=== PATIENT | female | born 2000 | race Two or more races ===

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

== ENCOUNTER 2019-04-08 19:40 | Emergency (ER) | payer SELFPAY ==
[2019-04-08 19:46] VITALS: BP 103/78; TEMP 98.5; BMI 25.7
[2019-04-08] MEDS ORDERED: LORazepam 0.5 MG TABLET PO ONE (19:54)
[2019-04-08] MEDS ORDERED: LORazepam 0.5 MG TABLET ONE (19:58)
[2019-04-08 19:59] VITALS: PULSE 86
--- NOTE | 2019-04-08 19:59 | PDOC ---
History of Present Illness - General Chief Complaint: Psychiatric Stated Complaint: ANXIETY Time Seen by Provider: 04/08/19 19:47 History Source: Patient - History of Present Illness Timing/Duration: other Past History - Past Medical History Allergies/Adverse Reactions: Allergies Allergy/AdvReac Type Severity Reaction Status Date / Time No Known Allergies Allergy Verified 09/17/18 07:50 Home Medications: Ambulatory Orders NK [No Known Home Medication] 09/17/18 COPD: No - Reproductive History (#): 1 Para: 0 - Immunization History Immunization Up to Date: Yes - Psycho Social/Smoking Cessation Hx Smoking History: Never smoked Have you smoked in the past 12 months: No Hx Alcohol Use: No Drug/Substance Use Hx: No Review of Systems - Review of Systems Respiratory: Yes: Shortness of Breath Cardiac (ROS): No: Chest Pain, Lightheadedness, Palpitations, Syncope Psychiatric: Yes: Anxiety. No: Depression, Stressors *Physical Exam - Vital Signs Last Vital Signs Temp Pulse Resp BP Pulse Ox 98.5 F 112 H 19 103/78 100 04/08/19 19:42 04/08/19 19:42 04/08/19 19:42 04/08/19 19:42 04/08/19 19:42 - Physical Exam General Appearance: Yes: Appropriately Dressed. No: Apparent Distress HEENT: positive: Normal Voice Neck: positive: Supple Respiratory/Chest: positive: Lungs Clear, Normal Breath Sounds. negative: Respiratory Distress Cardiovascular: positive: Regular Rate, S1, S2 Integumentary: positive: Dry, Warm Neurologic: positive: Fully Oriented, Alert, Normal Mood/Affect Medical Decision Making - Medical Decision Making 04/08/19 19:55 18-year-old female, denies any past medical history, here with feelings of "anxiety" x2 days. Patient reports that she has been feeling "jittery" and on edge w/ ? periods of SOB but not certain as to why as she has no major stressors in her life and no recent life changes. No history of prior symptoms and no history of psych disorder. States her aunt does have anxiety. Patient has no hallucinations and no SI or HI. Denies any illicit drug use. Patient well-appearing and stable here (HR 112 at triage, normalized to 86 on rpt) and in no apparent distress. Small dose Ativan given. Patient told to follow-up with her PMD for further evaluation and possible psych referral 04/08/19 19:58 Discharge - Discharge Information Problems reviewed: Yes Clinical Impression/Diagnosis: Anxiety Condition: Good Disposition: HOME - Follow up/Referral - Patient Discharge Instructions Patient Printed Discharge Instructions: DI for Anxiety -- Adult Additional Instructions: Please follow-up with your primary care physician if your symptoms persist If symptoms worsen and you feel suicidal, please return to the ER - Post Discharge Activity
== END 2019-04-08 20:25 | disposition home or self-care (01) ==
LOC: JERFT 19:40
DX: F41.9 Anxiety disorder, unspecified (principal); Z11.3 Encounter for screening for infections with a predominantly sexual mode of transmission
CPT/HCPCS: 36415; 87491; 87591; 99282-25

== ENCOUNTER 2019-08-09 09:12 | Emergency (ER) | payer OTHER ==
[2019-08-09 09:23] VITALS: BP 105/60; PULSE 83; TEMP 97.6; BMI 23.1
[2019-08-09 09:58] LABS: URINE APPEARANCE CLEAR; URINE BILIRUBIN NEGATIVE (NEGATIVE); URINE COLOR YELLOW; URINE GLUCOSE (UA) NEGATIVE (NEGATIVE); URINE KETONE NEGATIVE (NEGATIVE); URINE LEUK ESTERASE NEGATIVE (NEGATIVE); URINE NITRITE NEGATIVE (NEGATIVE); URINE PROTEIN NEGATIVE (NEGATIVE); URINE UROBILINOGEN 0.2 mg/dL (0.2-1.0)
[2019-08-09 10:10] LABS: HCG,QUALITATIVE URINE Negative
--- NOTE | 2019-08-09 10:28 | PDOC ---
History of Present Illness - General Chief Complaint: Urinary Problem Stated Complaint: UTI Time Seen by Provider: 08/09/19 09:54 History Source: Patient Exam Limitations: No Limitations - History of Present Illness Initial Comments: 08/09/19 10:22 18-year-old female , 1 ectopic 1 year ago, small ovarian cyst ? R vs L side, chlamydia 3 years ago and recently diagnosed with chlamydia 4 days ago was treated with ceftriaxone IM and azithromycin p.o. Presents complaining of minimal dysuria and suprapubic discomfort x2 days. Denies fever, chills, nausea, vomiting, diarrhea, decreased appetite, back pain, chest pain, shortness of breath or any other complaint. LMP 08/06/19. ROS: as above PE: GENERAL: well-appearing, NAD HEAD: NCAT EYES: Pupils equal, round and reactive to light, sclera anicteric, conjunctiva clear ENT: pharynx: no erythema, no exudate, uvula midline NECK: supple CHEST: nontender RESP: clear, no w/r/r CARDIO: rrr, no m/g/r ABD: +BS, soft, nontender, non distended : Os closed, no CMT, no adnexal tenderness to palpation, no blood in the vault no vaginal discharge noted, no foul odor BACK: no midline spinal ttp, no CVAT EXTREMITIES: Normal range of motion, no edema NEUROLOGICAL: Normal speech, normal gait SKIN: Warm, Dry 08/09/19 10:29 Is this a multiple visit Asthma Patient?: No Past History - Past Medical History Allergies/Adverse Reactions: Allergies Allergy/AdvReac Type Severity Reaction Status Date / Time No Known Allergies Allergy Verified 09/17/18 07:50 Home Medications: Ambulatory Orders NK [No Known Home Medication] 09/17/18 COPD: No - Reproductive History Is Patient Now?: No (#): 1 Para: 0 - Immunization History Immunization Up to Date: Yes - Psycho Social/Smoking Cessation Hx Smoking History: Current every day smoker Have you smoked in the past 12 months: No Information on smoking cessation initiated: No Hx Alcohol Use: Yes Drug/Substance Use Hx: No *Physical Exam - Vital Signs Last Vital Signs Temp Pulse Resp BP Pulse Ox 97.6 F 83 18 105/60 100 08/09/19 09:20 08/09/19 09:20 08/09/19 09:20 08/09/19 09:20 08/09/19 09:20 ED Treatment Course - ADDITIONAL ORDERS Additional order review: Laboratory Results 08/09/19 09:45 Urine Color Yellow Urine Appearance Clear Urine pH 5.0 D Ur Specific [place] 1.032 Urine Protein Negative Urine Glucose (UA) Negative Urine Ketones Negative Urine Blood Negative Urine Nitrite Negative Urine Bilirubin Negative Urine Urobilinogen 0.2 Ur Leukocyte Esterase Negative Urine HCG, Qual Negative Medical Decision Making - Medical Decision Making 08/09/19 10:28 18-year-old with history of ovarian cyst unclear if on right or left side, history of STIs chlamydia 3 years ago and diagnosed with chlamydia 4 days ago for which she was treated appropriately. Complaining of minimal dysuria for 2 days. Last sexual activity was approximately 6 weeks ago. LMP 3 days ago. Denies vaginal discharge, fever, chills, vomiting, diarrhea, back pain, or any other complaints. Well-appearing UA unremarkable test negative Pelvic exam: No CMT, no adnexal tenderness to palpation, os closed Stable for discharge with strict return precautions Discharge - Discharge Information Problems reviewed: Yes Clinical Impression/Diagnosis: Suprapubic discomfort Condition: Stable Disposition: HOME - Admission No - Follow up/Referral - Patient Discharge Instructions Additional Instructions: Follow-up with your check services clerk within 1 week If you develop abdominal pain, fever, chills, nausea, vomiting, worsening urinary symptoms return to ED - Post Discharge Activity
== END 2019-08-09 10:51 | disposition home or self-care (01) ==
LOC: JERFT 09:12
DX: R10.2 Pelvic and perineal pain (principal); Z86.19 Personal history of other infectious and parasitic diseases; F17.210 Nicotine dependence, cigarettes, uncomplicated
CPT/HCPCS: 81003; 84703; 87086; 99283-25

== ENCOUNTER 2021-07-09 21:46 | Emergency (ER) | payer OTHER ==
[2021-07-09 21:57] VITALS: BP 105/70; PULSE 90; TEMP 98.3; BMI 27.3
[2021-07-09 23:47] LABS: EPI CELLS 13 /uL (0-25.1); HYALINE CASTS 2 /uL (0-3.1); PH,URINE 6.5 (5.0-8.0); URINE APPEARANCE CLOUDY; URINE BACTERIA 246 /uL (0-1359); URINE BILIRUBIN NEGATIVE (NEGATIVE); URINE COLOR YELLOW; URINE GLUCOSE (UA) NEGATIVE (NEGATIVE); URINE KETONE NEGATIVE (NEGATIVE); URINE LEUK ESTERASE 2+ (NEGATIVE); URINE NITRITE NEGATIVE (NEGATIVE); URINE PROTEIN NEGATIVE (NEGATIVE); URINE RBC 16 /uL (0-23.9); URINE UROBILINOGEN 0.2 mg/dL (0.2-1.0); URINE WBC 941 /uL (0-25.8)
[2021-07-09] MEDS ORDERED: KETOROLAC TROMETHAMINE 30 MG/1 ML VIAL IM ONE (23:47)
[2021-07-10 00:19] LABS: HCG,QUALITATIVE URINE NEGATIVE
[2021-07-10] MEDS ORDERED: KETOROLAC TROMETHAMINE 30 MG/1 ML VIAL ONE (00:30)
== END 2021-07-10 00:34 | disposition home or self-care (01) ==
LOC: JERFT 21:46 → JER 21:46
PROC: 3E0233Z Introduction of Anti-inflammatory into Muscle, Percutaneous Approach (ICD-10-PCS; principal; 2021-07-09)
DX: M54.50 Low back pain, unspecified (principal)
CPT/HCPCS: 81003; 84703; 87086; 99284-25

== ENCOUNTER 2021-07-14 21:29 | Emergency (ER) | payer OTHER ==
[2021-07-14 21:37] VITALS: BP 104/68; PULSE 128; TEMP 98; BMI 27.3
[2021-07-14] MEDS ORDERED: LIDOCAINE PATCH REMOVAL MC SCH (22:00)
[2021-07-14] MEDS ORDERED: KETOROLAC TROMETHAMINE 60 MG/2 ML VIAL IM ONE (22:09)
[2021-07-14] MEDS ORDERED: METHOCARBAMOL 500 MG TABLET PO ONE (22:09)
[2021-07-14] MEDS ORDERED: LIDOCAINE 5% TOPICAL PATCH TP ONE (22:10)
[2021-07-14] MEDS ORDERED: KETOROLAC TROMETHAMINE 30 MG/1 ML VIAL ONE (22:19)
[2021-07-14] MEDS ORDERED: LIDOCAINE 5% TOPICAL PATCH ONE (22:19)
[2021-07-14] MEDS ORDERED: METHOCARBAMOL 500 MG TABLET ONE (22:19)
== END 2021-07-14 23:13 | disposition home or self-care (01) ==
LOC: JER 21:29 → JERFT 21:29
PROC: 3E0233Z Introduction of Anti-inflammatory into Muscle, Percutaneous Approach (ICD-10-PCS; principal; 2021-07-14)
DX: M54.42 Lumbago with sciatica, left side (principal)
CPT/HCPCS: 72100-TC-FY; 96372; 99284-25

== ENCOUNTER 2021-09-29 04:35 | Day surgery (SDC) | payer OTHER ==
[2021-09-28 12:43] VITALS: BMI 27.6
[2021-09-29] MEDS ORDERED: BUPIVACAINE HCL/PF 0.5% (5MG/ML) 10 ML VIAL ONE (07:18)
[2021-09-29] MEDS ORDERED: LIDOCAINE HCL/PF 1% SDV 5ML VIAL ONE (07:18)
[2021-09-29] MEDS ORDERED: TRIAMCINOLONE ACET 40MG/1ML VIAL ONE (07:18)
[2021-09-29] MEDS ORDERED: IOHEXOL 180 MG/1 ML ML IJ ONE (11:28)
[2021-09-29] MEDS ORDERED: BUPIVACAINE HCL/PF 0.5% (5MG/ML) 10 ML VIAL NR ONE (11:29)
[2021-09-29] MEDS ORDERED: TRIAMCINOLONE ACETONIDE 40 MG/ML 10 ML VIAL NR ONE (11:30)
[2021-09-29] MEDS ORDERED: LIDOCAINE HCL 1% PRESERVATIVE FREE - 30ML VIAL NR ONE (11:33)
[2021-09-29 13:48] VITALS: BP 104/65; PULSE 89; TEMP 98.8
== END 2021-09-29 12:00 | disposition home or self-care (01) ==
LOC: JASU-SURG 04:35
PROVIDERS: ATTEND Pain Medicine Pain Medicine
PROC: 3E0U3BZ Introduction of Anesthetic Agent into Joints, Percutaneous Approach (ICD-10-PCS; 2021-09-29)
PROC: 3E0U33Z Introduction of Anti-inflammatory into Joints, Percutaneous Approach (ICD-10-PCS; principal; 2021-09-29 12:00)
DX: M53.3 Sacrococcygeal disorders, not elsewhere classified (principal)
CPT/HCPCS: 76000-TC-FY; 81025

== ENCOUNTER → 2021-12-15 | Emergency (ER) | payer OTHER ==
[2021-12-15 01:22] VITALS: BP 100/64; PULSE 82; TEMP 98.4; BMI 27.3
== END | disposition left against medical advice (07) ==
LOC: JER 00:21
DX: R10.30 Lower abdominal pain, unspecified (principal)
CPT/HCPCS: 99283-25

== ENCOUNTER 2023-02-01 19:28 | Emergency (ER) | payer OTHER ==
[2023-02-01 19:48] VITALS: BP 106/72; PULSE 69; RESP 20; TEMP 98.1; BMI 32.1
[2023-02-01] MEDS ORDERED: SODIUM CHLORIDE 1,000 ML IV STA (20:32)
[2023-02-01] MEDS ORDERED: ACETAMINOPHEN 1000 MG/100 ML BAG IVPB ONE (20:32)
[2023-02-01] MEDS ORDERED: ACETAMINOPHEN INJECTION 100 ML IVPB ONE (20:57)
[2023-02-01 21:10] LABS: POTASSIUM 5.1 mmol/L (3.5-5.1)
[2023-02-01 21:13] LABS: ALBUMIN 3.6 g/dl (3.4-5.0); BLOOD UREA NITROGEN 18.3 mg/dL (7-18)
[2023-02-01 21:16] LABS: CREATININE 0.7 mg/dL (0.55-1.3)
[2023-02-01 21:17] LABS: BILIRUBIN,TOTAL 0.2 mg/dL (0.2-1)
[2023-02-01 21:18] LABS: TOT PROT 7.5 g/dl (6.4-8.2)
[2023-02-01 21:22] LABS: EPI CELLS 11 /uL (0-25.1); HYALINE CASTS 0 /uL (0-3.1); URINE APPEARANCE CLEAR; URINE BACTERIA 62 /uL (0-1359); URINE BILIRUBIN NEGATIVE (NEGATIVE); URINE COLOR YELLOW; URINE GLUCOSE (UA) NEGATIVE (NEGATIVE); URINE KETONE NEGATIVE (NEGATIVE); URINE LEUK ESTERASE 1+ (NEGATIVE); URINE NITRITE NEGATIVE (NEGATIVE); URINE PROTEIN NEGATIVE (NEGATIVE); URINE RBC 5 /uL (0-23.9); URINE UROBILINOGEN 0.2 mg/dL (0.2-1.0); URINE WBC 103 /uL (0-25.8)
[2023-02-01 21:44] LABS: BASO % 0.6 % (0-2.0); EOS % 1.8 % (0-4.5); HEMATOCRIT 40.2 % (32.4-45.2); HEMOGLOBIN 13.2 GM/dL (10.7-15.3); LYMPH % 29.3 % (8-40); MCHC 32.9 g/dl (32.0-36.0); MEAN CELL VOLUME 88.1 fl (80-96); MEAN PLT VOLUME 8.4 fl (7.5-11.1); MONO % 8.4 % (3.8-10.2); NEUT % 59.9 % (42.8-82.8); PLATELET COUNT 323 10^3/uL (134-434); RBC 4.56 M/mm3 (3.60-5.2); RDW 13.8 % (11.6-15.6); WHITE BLOOD COUNT 10.4 K/mm3 (4.0-10.0)
[2023-02-01 21:52] LABS: INR 0.9 (0.83-1.09); PROTHROMBIN TIME (PATIENT) 10.4 SEC (9.7-13.0)
[2023-02-01 21:53] LABS: HCG,QUALITATIVE URINE NEGATIVE
[2023-02-01 21:54] LABS: ACTIVATED PTT 28.3 SECONDS (25.2-36.5)
[2023-02-01 22:29] LABS: CHLORIDE 106 mmol/L (98-107)
[2023-02-01 22:32] LABS: ALBUMIN 3.6 g/dl (3.4-5.0); BLOOD UREA NITROGEN 17.2 mg/dL (7-18); CO2 26 mmol/L (21-32); GLUCOSE,RANDOM 79 mg/dL (74-106); LIPASE 91 U/L (73-393)
[2023-02-01 22:35] LABS: CREATININE 0.8 mg/dL (0.55-1.3); SGOT/AST 68 U/L (15-37)
[2023-02-01 22:36] LABS: BILIRUBIN,TOTAL 0.3 mg/dL (0.2-1); TOT PROT 7.9 g/dl (6.4-8.2)
[2023-02-01 22:38] LABS: ALK PHOS 83 U/L (45-117)
[2023-02-01 22:39] LABS: ANION GAP 6 MMOL/L (8-16); POTASSIUM 6.5 mmol/L (3.5-5.1); SGPT/ALT 54 U/L (13-61); SODIUM 138 mmol/L (136-145)
== END 2023-02-01 22:45 | disposition home or self-care (01) ==
LOC: JER 19:28
PROC: 3E033NZ Introduction of Analgesics, Hypnotics, Sedatives into Peripheral Vein, Percutaneous Approach (ICD-10-PCS; principal; 2023-02-01)
PROC: 3E0337Z Introduction of Electrolytic and Water Balance Substance into Peripheral Vein, Percutaneous Approach (ICD-10-PCS; 2023-02-01)
DX: T83.32XA Displacement of intrauterine contraceptive device, initial encounter (principal); R10.31 Right lower quadrant pain; R14.3 Flatulence
CPT/HCPCS: 36415; 74177-TC; 80053; 81003; 83690; 84703; 85025; 85610; 85730; 86850; 86900; 86901; 87086; 99285-25; Q9967

== ENCOUNTER 2023-11-10 15:39 | Emergency (ER) | payer OTHER ==
[2023-11-10 16:01] VITALS: BP 111/63; PULSE 79; RESP 18; TEMP 98.5; BMI 33.8
[2023-11-10 17:16] LABS: BASO % 0.5 % (0-2.0); EOS % 1.6 % (0-4.5); HEMATOCRIT 37.1 % (32.4-45.2); HEMOGLOBIN 12.5 GM/dL (10.7-15.3); LYMPH % 32.1 % (8-40); MCH 28.7 pg (25.7-33.7); MCHC 33.5 g/dl (32.0-36.0); MEAN CELL VOLUME 85.6 fl (80-96); MEAN PLT VOLUME 7.5 fl (7.5-11.1); MONO % 7.6 % (3.8-10.2); NEUT % 58.2 % (42.8-82.8); PLATELET COUNT 323 10^3/uL (134-434); RBC 4.34 M/mm3 (3.60-5.2); WHITE BLOOD COUNT 6.6 K/mm3 (4.0-10.0)
[2023-11-10 17:22] LABS: EPI CELLS 22 /uL (0-25.1); HYALINE CASTS 1 /uL (0-3.1); PH,URINE 5.5 (5.0-8.0); URINE APPEARANCE CLEAR; URINE BACTERIA 123 /uL (0-1359); URINE BILIRUBIN NEGATIVE (NEGATIVE); URINE COLOR YELLOW; URINE GLUCOSE (UA) NEGATIVE (NEGATIVE); URINE KETONE TRACE (NEGATIVE); URINE LEUK ESTERASE TRACE (NEGATIVE); URINE NITRITE NEGATIVE (NEGATIVE); URINE PROTEIN TRACE (NEGATIVE); URINE RBC 169 /uL (0-23.9); URINE WBC 83 /uL (0-25.8)
[2023-11-10 17:29] LABS: INR 0.87 (0.83-1.09); PROTHROMBIN TIME (PATIENT) 10.1 SEC (9.7-13.0)
[2023-11-10 17:31] LABS: ACTIVATED PTT 28.8 SECONDS (25.2-36.5)
[2023-11-10 17:38] LABS: POTASSIUM 4.2 mmol/L (3.5-5.1)
[2023-11-10 17:40] LABS: ALBUMIN 3.3 g/dl (3.4-5.0); BLOOD UREA NITROGEN 16.1 mg/dL (7-18)
[2023-11-10 17:43] LABS: CREATININE 0.7 mg/dL (0.55-1.3)
[2023-11-10 17:45] LABS: BILIRUBIN,TOTAL 0.1 mg/dL (0.2-1); TOT PROT 6.8 g/dl (6.4-8.2)
[2023-11-10 17:59] LABS: HCG,QUALITATIVE URINE Positive
== END 2023-11-10 19:00 | disposition left against medical advice (07) ==
LOC: JER 15:39
DX: O00.90 Unspecified ectopic pregnancy without intrauterine pregnancy (principal)
CPT/HCPCS: 36415; 76817-TC; 80053; 81003; 84702; 84703; 85025; 85610; 85730; 86850; 86900; 86901; 87086; 99284-25

== ENCOUNTER 2024-01-03 18:24 | Emergency (ER) | payer OTHER ==
[2024-01-03 18:47] VITALS: TEMP 98.2; BMI 34.0
[2024-01-03] MEDS ORDERED: morphine SULFATE 4 MG/ML VIAL ONE (18:59)
[2024-01-03] MEDS: LACTATED RINGERS SOLUTION 1000 ML INFUS.BAG IV ONE (19:37)
[2024-01-03 19:38] VITALS: BP 125/73; PULSE 79; RESP 16
[2024-01-03] MEDS: morphine CARPU-JECT 4 MG/1 ML DISP.SYRIN IVPUSH ONE (19:38)
[2024-01-03] MEDS ORDERED: BACITRACIN ZINC 15 GM TUBE TOPICAL OINTMENT ONE (19:50)
[2024-01-03] MEDS: BACITRACIN ZINC 15 GM TUBE TOPICAL OINTMENT TP ONE (19:53)
== END 2024-01-03 20:37 | disposition home or self-care (01) ==
LOC: JER 18:24
PROC: 3E033NZ Introduction of Analgesics, Hypnotics, Sedatives into Peripheral Vein, Percutaneous Approach (ICD-10-PCS; principal; 2024-01-03)
DX: T51.1X1A Toxic effect of methanol, accidental (unintentional), initial encounter (principal); T24.511A Corrosion of first degree of right thigh, initial encounter; T24.512A Corrosion of first degree of left thigh, initial encounter
CPT/HCPCS: 99284-25

== ENCOUNTER 2024-06-01 09:21 | Emergency (ER) | payer OTHER ==
[2024-06-01 09:28] VITALS: BMI 32.1
[2024-06-01] MEDS ORDERED: ACETAMINOPHEN 1000 MG/100 ML BAG IVPB ONE (10:23)
[2024-06-01] MEDS ORDERED: ONDANSETRON 4 MG/2 ML VIAL IVPUSH ONE (10:23)
[2024-06-01] MEDS ORDERED: FAMOTIDINE 20 MG/50 ML IVPB 20 MG/50 ML MG IVPB ONE (10:23)
[2024-06-01] MEDS ORDERED: ONDANSETRON *ODT* 4 MG TABLET ONE (10:52)
[2024-06-01] MEDS: ONDANSETRON *ODT* 4 MG TABLET SL ONE (10:54)
[2024-06-01] MEDS ORDERED: ACETAMINOPHEN 500 MG TABLET (FP) ONE (11:19)
[2024-06-01] MEDS ORDERED: FAMOTIDINE 20 MG TABLET ONE (11:20)
[2024-06-01 11:26] VITALS: BP 114/69; PULSE 98; RESP 20; TEMP 99.1
[2024-06-01] MEDS: ACETAMINOPHEN 500 MG TABLET (FP) PO ONE (11:34)
[2024-06-01] MEDS: FAMOTIDINE 20 MG TABLET PO ONE (11:34)
== END 2024-06-01 12:38 | disposition home or self-care (01) ==
LOC: JER 09:21
DX: K52.1 Toxic gastroenteritis and colitis (principal); T38.3X5A Adverse effect of insulin and oral hypoglycemic [antidiabetic] drugs, initial encounter; R11.2 Nausea with vomiting, unspecified; R10.84 Generalized abdominal pain; M79.10 Myalgia, unspecified site
CPT/HCPCS: 99283-25; Q0162